=== PATIENT | female | born 1980 | race American Indian/Alaskan Native ===

== ENCOUNTER 2017-10-14 09:11 | Emergency (ER) | payer MEDICAID ==
[2017-10-14 09:18] VITALS: BP 175/107
[2017-10-14 10:32] LABS: Bacteria,Urine 1+ /HPF (Negative); Bilirubin,Urine NEG (Negative); Blood,Urine NEG (Negative); Color,Urine Yellow (Yellow); Mucus,Urine FEW /HPF; Protein,Urine <15 mg/dL mg/dL (Negative); Urobilinogen,Urine < 2.0 mg/dL (<2.0)
[2017-10-14 10:33] LABS: HCG Qualitative,Urine Negative (Negative)
[2017-10-14 10:52] LABS: Basophils % (Auto) 0.2 % (0.0-1.8); Eosinophils # (Auto) 0.6 K/mm3 (0.0-0.4); Eosinophils % (Auto) 3.9 % (0.0-4.3); Hematocrit 40.6 % (30.3-42.9); Hemoglobin 12.7 gm/dl (10.1-14.3); Lymphocytes # (Auto) 3.7 K/mm3 (1.2-5.4); Lymphocytes % (Auto) 25.5 % (13.4-35.0); Mean Corpuscular HGB Conc 31 % (30-34); Mean Corpuscular Volume 73 fl (79-97); Monocytes # (Auto) 1.2 K/mm3 (0.0-0.8); Monocytes % (Auto) 8.2 % (0.0-7.3); Platelet Count 335 K/mm3 (140-440); Red Blood Count 5.55 M/mm3 (3.65-5.03); Red Cell Distribution Width 16.7 % (13.2-15.2)
[2017-10-14 10:53] LABS: Mean Corpuscular Hemoglobin 23 pg (28-32)
[2017-10-14 11:08] LABS: Alanine Aminotransferase 59 units/L (7-56); Albumin 3.6 g/dL (3.9-5); BUN/Creatinine Ratio 10; Blood Urea Nitrogen 6 mg/dL (7-17); Calcium 8.7 mg/dL (8.4-10.2); Hemolysis Index 44; Lipase 31 units/L (13-60)
[2017-10-14] MEDS ORDERED: NACL 0.9% 1000 ML 1,000 ML IV ONE (11:58)
[2017-10-14] MEDS ORDERED: ZOFRAN IV ONE (11:58)
[2017-10-14] MEDS ORDERED: BENTYL IM ONE (11:58)
[2017-10-14] MEDS ORDERED: TORADOL IV ONE (11:58)
--- NOTE | 2017-10-14 15:19 | Cat Scan Report ---
CT ABDOMEN PELVIS WITH CONTRAST: HISTORY: Left lower quadrant abdominal pain, nausea, vomiting, diarrhea. COMPARISON: none. TECHNIQUE: Helical CT in 1.25mm intervals following IV contrast. Sagittal and coronal reconstructions. FINDINGS: Lung bases: Normal. Liver: There is diffuse fatty infiltration of the liver parenchyma. Mild hepatomegaly. No focal liver lesion is detected. Biliary system: Cholecystectomy. No biliary dilatation is appreciated. Pancreas: Normal. Spleen: Normal. Kidneys/ureters/bladder: Normal. Adrenal glands: Normal. Aorta: Normal. Intestines: Within normal limits given no oral contrast was administered. No focal inflammation or obstruction is identified. No diverticulosis. Appendix: Not confidently identified, correlate with surgical history. Pelvic viscera: The uterus and adnexa are within normal limits. An intrauterine device appears in good position. Ascites: None. Adenopathy: None. Musculoskeletal: Normal. IMPRESSION: No acute inflammatory process is appreciated. Mild hepatomegaly with diffuse fatty infiltration. Cholecystectomy. The appendix is not confidently identified, correlate with surgical history.
--- NOTE | 2017-10-14 16:14 | Emergency Department Report ---
ED N/V/D HPI - General Chief complaint: Abdominal Pain Stated complaint: ABD PAIN Time Seen by Provider: 10/14/17 11:50 Source: patient Mode of arrival: Ambulatory Limitations: No Limitations - History of Present Illness Initial comments: Patient is a 36-year-old asthmatic female who is presenting with 3 days of nausea vomiting diarrhea. Patient states she has some left lower quadrant and left flank pain as well. Patient states the pain is approximately a 6 out of 10 as crampy and colicky in nature. Patient denies any fevers chills chest pain dysuria vaginal discharge or vaginal bleeding at this time. Description of Vomiting: food contents, watery Description of Diarrhea: water - Related Data Home Medications Medication Instructions Recorded Confirmed Last Taken amLODIPine [Norvasc] 5 mg PO DAILY 03/29/13 08/10/13 08/08/13 Previous Rx's Medication Instructions Recorded Last Taken Type HYDROcodone/APAP 10-325 [[place] 1 each PO Q6HR PRN #12 tablet 08/24/13 Unknown Rx 10/325] Methocarbamol [Robaxin] 750 mg PO BID #14 tab 08/24/13 Unknown Rx Amoxicillin [Trimox CAP] 500 mg PO Q8H #30 capsule 10/05/14 Unknown Rx predniSONE [Deltasone] 20 mg PO TID #9 tab 10/05/14 Unknown Rx Ibuprofen [Motrin 800 MG tab] 800 mg PO Q8HR PRN #30 tablet 08/29/16 Unknown Rx oxyCODONE /ACETAMINOPHEN [Percocet 1 tab PO Q4-6H PRN #16 tablet 08/29/16 Unknown Rx 5/325 mg] Dicyclomine [Bentyl] 20 mg PO QID #15 tablet 10/14/17 Unknown Rx Diphenoxylate/Atropine [Lomotil] 1 tab PO TID PRN #10 tablet 10/14/17 Unknown Rx Ondansetron [Zofran Odt] 4 mg PO Q8HR PRN #10 tab.rapdis 10/14/17 Unknown Rx Allergies Allergy/AdvReac Type Severity Reaction Status Date / Time No Known Allergies Allergy Verified 04/02/16 12:32 ED Review of Systems ROS: Stated complaint: ABD PAIN Other details as noted in HPI Comment: All other systems reviewed and negative ED Past Medical Hx - Past Medical History Previous Medical History?: Yes Hx Hypertension: Yes Hx GERD: Yes Hx Headaches / Migraines: Yes Additional medical history: hyperlipidemia, neuropathy L leg - Surgical History Past Surgical History?: Yes Hx Cholecystectomy: Yes (2010) Additional Surgical History: left knee surgery 2011,C-sectiopn x 2 - Social History Smoking Status: Never Smoker Substance Use Type: Alcohol, Prescribed - Medications Home Medications: Home Medications Medication Instructions Recorded Confirmed Last Taken Type amLODIPine [Norvasc] 5 mg PO DAILY 03/29/13 08/10/13 08/08/13 History HYDROcodone/APAP 10-325 [[place] 1 each PO Q6HR PRN #12 tablet 08/24/13 Unknown Rx 10/325] Methocarbamol [Robaxin] 750 mg PO BID #14 tab 08/24/13 Unknown Rx Amoxicillin [Trimox CAP] 500 mg PO Q8H #30 capsule 10/05/14 Unknown Rx predniSONE [Deltasone] 20 mg PO TID #9 tab 10/05/14 Unknown Rx Ibuprofen [Motrin 800 MG tab] 800 mg PO Q8HR PRN #30 tablet 08/29/16 Unknown Rx oxyCODONE /ACETAMINOPHEN [Percocet 1 tab PO Q4-6H PRN #16 tablet 08/29/16 Unknown Rx 5/325 mg] Dicyclomine [Bentyl] 20 mg PO QID #15 tablet 10/14/17 Unknown Rx Diphenoxylate/Atropine [Lomotil] 1 tab PO TID PRN #10 tablet 10/14/17 Unknown Rx Ondansetron [Zofran Odt] 4 mg PO Q8HR PRN #10 tab.rapdis 10/14/17 Unknown Rx ED Physical Exam - General Limitations: No Limitations General appearance: alert, in no apparent distress - Head Head exam: Present: atraumatic, normocephalic - Eye Eye exam: Present: normal appearance - ENT ENT exam: Present: mucous membranes moist - Neck Neck exam: Present: normal inspection - Respiratory Respiratory exam: Present: normal lung sounds bilaterally. Absent: respiratory distress, wheezes, rales - Cardiovascular Cardiovascular Exam: Present: regular rate, normal rhythm. Absent: systolic murmur, diastolic murmur, rubs, gallop - GI/Abdominal GI/Abdominal exam: Present: soft, normal bowel sounds. Absent: distended, tenderness, guarding - Extremities Exam Extremities exam: Present: normal inspection - Back Exam Back exam: Present: normal inspection - Neurological Exam Neurological exam: Present: alert, oriented X3 - Psychiatric Psychiatric exam: Present: normal affect, normal mood - Skin Skin exam: Present: warm, dry, intact, normal color. Absent: rash ED Course Vital Signs 10/14/17 10/14/17 09:14 14:01 Temperature 98.2 F Pulse Rate 98 H Respiratory 20 16 Rate Blood Pressure 175/107 O2 Sat by Pulse 99 100 Oximetry ED Medical Decision Making - Lab Data Result diagrams: 10/14/17 10:24 10/14/17 10:27 Lab Results 10/14/17 10/14/17 10/14/17 Range/Units 10:24 10:27 Unknown WBC 14.4 H (4.5-11.0) K/mm3 RBC 5.55 H (3.65-5.03) M/mm3 Hgb 12.7 (10.1-14.3) gm/dl Hct 40.6 (30.3-42.9) % MCV 73 L (79-97) fl MCH 23 L (28-32) pg MCHC 31 (30-34) % RDW 16.7 H (13.2-15.2) % Plt Count 335 (140-440) K/mm3 Lymph % (Auto) 25.5 (13.4-35.0) % [place] % (Auto) 8.2 H (0.0-7.3) % Eos % (Auto) 3.9 (0.0-4.3) % Baso % (Auto) 0.2 (0.0-1.8) % Lymph # 3.7 (1.2-5.4) K/mm3 [place] # 1.2 H (0.0-0.8) K/mm3 Eos # 0.6 H (0.0-0.4) K/mm3 Baso # 0.0 (0.0-0.1) K/mm3 Seg Neutrophils % 62.2 (40.0-70.0) % Seg Neutrophils # 9.0 H (1.8-7.7) K/mm3 Sodium 139 (137-145) mmol/L Potassium 4.0 (3.6-5.0) mmol/L Chloride 103.0 (98-107) mmol/L Carbon Dioxide 24 (22-30) mmol/L Anion Gap 16 mmol/L BUN 6 L (7-17) mg/dL Creatinine 0.6 L (0.7-1.2) mg/dL Estimated GFR > 60 ml/min BUN/Creatinine Ratio 10 % Glucose 126 H (65-100) mg/dL Calcium 8.7 (8.4-10.2) mg/dL Total Bilirubin 0.30 (0.1-1.2) mg/dL AST 40 (5-40) units/L ALT 59 H (7-56) units/L Alkaline Phosphatase 94 (35-129) units/L Total Protein 7.8 (6.3-8.2) g/dL Albumin 3.6 L (3.9-5) g/dL Albumin/Globulin Ratio 0.9 % Lipase 31 (13-60) units/L Urine Color Yellow (Yellow) Urine Turbidity Clear (Clear) Urine pH 6.0 (5.0-7.0) Ur Specific [place] 1.017 (1.003-1.030) Urine Protein <15 mg/dl (Negative) mg/dL Urine Glucose (UA) Neg (Negative) mg/dL Urine Ketones Neg (Negative) mg/dL Urine Blood Neg (Negative) Urine Nitrite Neg (Negative) Urine Bilirubin Neg (Negative) Urine Urobilinogen < 2.0 (<2.0) mg/dL Ur Leukocyte Esterase Mod (Negative) Urine WBC (Auto) 22.0 H (0.0-6.0) /HPF Urine RBC (Auto) 2.0 (0.0-6.0) /HPF U Epithel Cells (Auto) 2.0 (0-13.0) /HPF Urine Bacteria (Auto) 1+ (Negative) /HPF Urine Mucus Few /HPF Urine HCG, Qual Negative (Negative) - Radiology Data Radiology results: report reviewed The patient's CT abdomen and pelvis with contrast shows no acute process. - Medical Decision Making Patient is a 36-year-old [place] female who is presenting with nausea vomiting diarrhea. CT and labs are consistent with a viral gastroenteritis. Patient will be discharged home with meds for symptomatic relief. Patient does have a history of hypertension and does have her medications for her blood pressure. Patient has no signs of end organ damage and she will be able to continue with her blood pressure medicines. Nausea medicines have been given so the patient will be able to keep her meds down. Critical care attestation.: If time is entered above; I have spent that time in minutes in the direct care of this critically ill patient, excluding procedure time. ED Disposition Clinical Impression: Viral gastroenteritis Disposition: DC-01 TO HOME OR SELFCARE Is pt being admited?: No Does the pt Need Aspirin: No Condition: Stable Instructions: Abdominal Pain (ED), Gastroenteritis (ED) Prescriptions: Dicyclomine [Bentyl] 20 mg PO QID #15 tablet Diphenoxylate/Atropine [Lomotil] 1 tab PO TID PRN #10 tablet PRN Reason: Diarrhea Ondansetron [Zofran Odt] 4 mg PO Q8HR PRN #10 tab.rapdis PRN Reason: Nausea Referrals: SEAMUS ESCOBEDO DO [Primary Care Provider] - 3-5 Days
== END 2017-10-14 17:08 | disposition home or self-care (01) ==
LOC: ED 09:11
DX: A08.4 Viral intestinal infection, unspecified (principal); K21.9 Gastro-esophageal reflux disease without esophagitis; I10 Essential (primary) hypertension; G43.909 Migraine, unspecified, not intractable, without status migrainosus; E78.5 Hyperlipidemia, unspecified; G62.9 Polyneuropathy, unspecified; Z90.49 Acquired absence of other specified parts of digestive tract
CPT/HCPCS: 36415; 74177; 80053; 81001; 81025; 83690; 85025; 96361; 96372; 96374; 96375; 99284; J0500; J1885; J2405; J7030; Q9967

== ENCOUNTER 2017-12-20 09:18 | Emergency (ER) | payer MEDICAID ==
[2017-12-20] MEDS ORDERED: COZAAR PO ONE (11:56)
[2017-12-20] MEDS ORDERED: BENADRYL IV ONE (11:56)
[2017-12-20] MEDS ORDERED: TORADOL IV ONE (11:56)
[2017-12-20] MEDS ORDERED: REGLAN IV ONE (11:56)
[2017-12-20] MEDS ORDERED: NACL 0.9% 500 ML 500 ML IV ONE (11:56)
--- NOTE | 2017-12-20 12:32 | Emergency Department Report ---
ED Headache HPI - General Chief Complaint: Headache Stated Complaint: HEADACHE Time Seen by Provider: 12/20/17 11:41 Source: patient Exam Limitations: no limitations - History of Present Illness Initial Comments: 37-year-old female the past medical history of obesity, migraines, hypertension , hyperlipidemia, and left leg neuropathy presents to the hospital with complaints of migraine headache for the past 3 days. Pain is right sided and typical of previous migraines with exeception of burning sensation down both sides of neck. She denies any burning sensation or weakness to her extremities. Pain is rated 9/10 in intensity and constant. Somewhat exacerbated by light. She has tried amitriptyline, sumatriptan, and magnesium without improvement. Nausea and vomiting yesterday but no vomiting today. Patient presents with elevated blood pressures states she did not take her a.m. dose of losartan 50 mg. Neurologist: Dr. Link Allergies/Adverse Reactions: Allergies No Known Allergies Allergy (Verified 04/02/16 12:32) Home Medications: Ambulatory Orders amLODIPine [Norvasc] 5 mg PO DAILY 03/29/13 HYDROcodone/APAP 10-325 [[place] 10/325] 1 each PO Q6HR PRN #12 tablet 08/24/13 Methocarbamol [Robaxin] 750 mg PO BID #14 tab 08/24/13 Amoxicillin [Trimox CAP] 500 mg PO Q8H #30 capsule 10/05/14 predniSONE [Deltasone] 20 mg PO TID #9 tab 10/05/14 Ibuprofen [Motrin 800 MG tab] 800 mg PO Q8HR PRN #30 tablet 08/29/16 oxyCODONE /ACETAMINOPHEN [Percocet 5/325 mg] 1 tab PO Q4-6H PRN #16 tablet 08/29 Dicyclomine [Bentyl] 20 mg PO QID #15 tablet 10/14/17 Diphenoxylate/Atropine [Lomotil] 1 tab PO TID PRN #10 tablet 10/14/17 Ondansetron [Zofran Odt] 4 mg PO Q8HR PRN #10 tab.rapdis 10/14/17 Cyclobenzaprine [Flexeril] 10 mg PO TID PRN #30 tablet 12/20/17 HYDROcodone/APAP 7.5-325 [[place] 7.5/325] 1 each PO Q8HR PRN #20 tablet 12/20/17 Ibuprofen [Motrin] 800 mg PO Q8HR PRN #30 tablet 12/20/17 ED Review of Systems ROS: Stated complaint: HEADACHE Other details as noted in HPI Comment: All other systems reviewed and negative ED Past Medical Hx - Past Medical History Hx Hypertension: Yes Hx GERD: Yes Hx Headaches / Migraines: Yes Additional medical history: hyperlipidemia, neuropathy L leg - Surgical History Hx Cholecystectomy: Yes (2010) Additional Surgical History: left knee surgery 2010,C-sectiopn x 2 - Social History Smoking Status: Never Smoker - Medications Home Medications: Home Medications Medication Instructions Recorded Confirmed Last Taken Type amLODIPine [Norvasc] 5 mg PO DAILY 03/29/13 08/10/13 08/08/13 History HYDROcodone/APAP 10-325 [[place] 1 each PO Q6HR PRN #12 tablet 08/24/13 Unknown Rx 10/325] Methocarbamol [Robaxin] 750 mg PO BID #14 tab 08/24/13 Unknown Rx Amoxicillin [Trimox CAP] 500 mg PO Q8H #30 capsule 10/05/14 Unknown Rx predniSONE [Deltasone] 20 mg PO TID #9 tab 10/05/14 Unknown Rx Ibuprofen [Motrin 800 MG tab] 800 mg PO Q8HR PRN #30 tablet 08/29/16 Unknown Rx oxyCODONE /ACETAMINOPHEN [Percocet 1 tab PO Q4-6H PRN #16 tablet 08/29/16 Unknown Rx 5/325 mg] Dicyclomine [Bentyl] 20 mg PO QID #15 tablet 10/14/17 Unknown Rx Diphenoxylate/Atropine [Lomotil] 1 tab PO TID PRN #10 tablet 10/14/17 Unknown Rx Ondansetron [Zofran Odt] 4 mg PO Q8HR PRN #10 tab.rapdis 10/14/17 Unknown Rx Cyclobenzaprine [Flexeril] 10 mg PO TID PRN #30 tablet 12/20/17 Unknown Rx HYDROcodone/APAP 7.5-325 [[place] 1 each PO Q8HR PRN #20 tablet 12/20/17 Unknown Rx 7.5/325] Ibuprofen [Motrin] 800 mg PO Q8HR PRN #30 tablet 12/20/17 Unknown Rx ED Physical Exam - General Limitations: No Limitations - Other Other exam information: General: No limitations, patient is alert in no acute distress Head exam: Atraumatic, normocephalic Eyes exam: Normal appearance, pupils equal reactive to light, extraocular movements intact ENT: Moist mucous membrane, normal oropharynx Neck exam: Normal inspection, full range of motion, no meningismus, tenderness palpation along bilateral trapezius and upper thoracic muscles Respiratory exam: Clear to auscultation bilateral, no wheezes, rales, crackles Cardiovascular: Normal rate and rhythm, normal heart sounds Abdomen: Soft, nondistended, and nontender, with normal bowel sounds, no rebound, or guarding Extremity: Full range of motion normal inspection no deformity Back: Normal Inspection, full range of motion, no tenderness Neurologic: Alert, oriented x3, cranial nerves intact, no motor or sensory deficit Psychiatric: normal affect, normal mood Skin: Warm, dry, intact ED Course Vital Signs 12/20/17 12/20/17 12/20/17 09:22 12:50 13:53 Temperature 97.9 F Pulse Rate 90 Respiratory 16 18 18 Rate Blood Pressure 162/108 [Left] O2 Sat by Pulse 98 Oximetry 12/20/17 14:47 Temperature Pulse Rate 85 Respiratory 18 Rate Blood Pressure 143/79 [Left] O2 Sat by Pulse 97 Oximetry ED Medical Decision Making - Radiology Data Radiology results: report reviewed CT scan of cervical spine: History: Right sided headache, migraine. Burning pain in the neck. Findings: The odontoid process and lateral mass appears intact. Anterior and posterior arch of atlas appears normal. There is normal height of vertebral bodies and intervertebral discs. Evidence of cervical spondylosis at C6-C7. Normal prevertebral soft tissue. Impression: Spondylosis C6-C7. CT scan of head without IV contrast: History: Right-sided headaches. Migraine. Findings: Ventricles are normal in size and midline in location. No evidence of acute ischemia, hemorrhage or mass. No extra-axial fluid collection. Normal brainstem and cerebellum. Normal visualized sinuses and mastoid air cells. Impression: No acute intracranial abnormality. - Medical Decision Making Headache Migraine cocktail: Reglan, Benadryl, NS, and Toradol with some relief in pain additional relief after Dilauid Flexeril for neck and muscle spasm HTN Patient did not take her medication Received losartan 50 mg bp improved with treatemtn will d/c on narcotics, nsaids, muscle relaxer for additional pain relief. - Differential Diagnosis ICH, migraine, mass, radiculopathy, muscle spasm hypertensive emergency Critical Care Time: No Critical care attestation.: If time is entered above; I have spent that time in minutes in the direct care of this critically ill patient, excluding procedure time. ED Disposition Clinical Impression: Muscle spasm of back, HTN (hypertension), Migraine, Neck muscle spasm Disposition: TO HOME OR SELFCARE Is pt being admited?: No Does the pt Need Aspirin: No Condition: Stable Instructions: Hypertension (ED), Migraine Headache (ED), Muscle Spasm (ED) Additional Instructions: Take the medication as prescribed in addition to your other prescribed migraine medication. Follow-up with your neurologist. Return is symptoms worsen as indicated by the discharge instructions Prescriptions: Cyclobenzaprine [Flexeril] 10 mg PO TID PRN #30 tablet PRN Reason: Muscle Spasm HYDROcodone/APAP 7.5-325 [[place] 7.5/325] 1 each PO Q8HR PRN #20 tablet PRN Reason: Pain Ibuprofen [Motrin] 800 mg PO Q8HR PRN #30 tablet PRN Reason: Pain Referrals: PRIMARY CARE,MD [Primary Care Provider] - 3-5 Days BOBBY LINK MD [Staff Physician] - 3-5 Days (Neurologist ) Time of Disposition: 15:15
--- NOTE | 2017-12-20 13:02 | Cat Scan Report ---
CT scan of head without IV contrast: History: Right-sided headaches. Migraine. Findings: Ventricles are normal in size and midline in location. No evidence of acute ischemia, hemorrhage or mass. No extra-axial fluid collection. Normal brainstem and cerebellum. Normal visualized sinuses and mastoid air cells. Impression: No acute intracranial abnormality.
--- NOTE | 2017-12-20 13:13 | Cat Scan Report ---
CT scan of cervical spine: History: Right sided headache, migraine. Burning pain in the neck. Findings: The odontoid process and lateral mass appears intact. Anterior and posterior arch of atlas appears normal. There is normal height of vertebral bodies and intervertebral discs. Evidence of cervical spondylosis at C6-C7. Normal prevertebral soft tissue. Impression: Spondylosis C6-C7.
[2017-12-20] MEDS ORDERED: DILAUDID IV ONE (13:32)
[2017-12-20] MEDS ORDERED: ZOFRAN IV ONE (13:32)
[2017-12-20] MEDS ORDERED: FLEXERIL PO ONE (14:41)
[2017-12-20 15:42] VITALS: BP 135/89
== END 2017-12-20 15:41 | disposition home or self-care (01) ==
LOC: ED 09:18
DX: G43.909 Migraine, unspecified, not intractable, without status migrainosus (principal); M62.830 Muscle spasm of back; I10 Essential (primary) hypertension; M62.838 Other muscle spasm; K21.9 Gastro-esophageal reflux disease without esophagitis
CPT/HCPCS: 70450; 72125; 96374; 96375; 99283; J1170; J1200; J1885; J2405; J2765; J7040

== ENCOUNTER 2019-02-05 16:53 | Emergency (ER) | payer MEDICAID ==
[2019-02-05 17:09] VITALS: BP 158/104
--- NOTE | 2019-02-05 17:09 | Event Note ---
ED Screening Note ED Screening Note: getting out of the bed heard a popping noise in her lower back that began this morning has not taken anything no urinary sx has a mirena IUD PMHx: HTN, GERD, HLD, migraines, neuropathy in the left leg, carpal tunnel PSHx: cholecystectomy no allergies to meds non smoker occ drinker no drug use This initial assessment/diagnostic orders/clinical plan/treatment(s) is/are subject to change based on patients health status, clinical progression and re- assessment by fellow clinical providers in the ED. Further treatment and workup at subsequent clinical providers discretion. Patient/guardian urged not to elope from the ED as their condition may be serious if not clinically assessed and managed. Initial orders include: UA, XR L-spine, urine preg
[2019-02-05 18:21] LABS: Bacteria,Urine 2+ /HPF (Negative); Bilirubin,Urine NEG (Negative); Blood,Urine SM (Negative); Color,Urine Yellow (Yellow); Protein,Urine <15 mg/dL mg/dL (Negative); Urobilinogen,Urine < 2.0 mg/dL (<2.0)
[2019-02-05 18:22] LABS: HCG Qualitative,Urine Negative (Negative)
--- NOTE | 2019-02-05 18:51 | XRay Report ---
LUMBAR SPINE 2 VIEWS INDICATION / CLINICAL INFORMATION: low back pain. COMPARISON: None available. FINDINGS: No significant abnormality. Signer Name: Lawrence Storey MD Signed: 02/05/2019 6:46 PM Workstation Name: [id number]
[2019-02-05] MEDS ORDERED: ULTRAM PO ONE (21:02)
--- NOTE | 2019-02-05 21:06 | Emergency Department Report ---
ED Back Pain/Injury HPI - General Chief Complaint: Back Pain/Injury Stated Complaint: UPPER/LOWER BACK PAIN Time Seen by Provider: 02/05/19 17:06 Source: patient Limitations: No Limitations - History of Present Illness Initial Comments: pt is a 38 y/o aaf with hx chronic back pain getting out of the bed heard a popping noise in her lower back that began this morning has not taken anything no urinary sx has a mirena IUD PMHx: HTN, GERD, HLD, migraines, neuropathy in the left leg, carpal tunnel PSHx: cholecystectomy no allergies to meds non smoker occ drinker no drug use there is no numbness no tingling no paralysis no loss or decrease in bowel or bladder function. MD Complaint: back pain Onset/Timin -: days(s) Similar Symptoms Previously: Yes Place: home Radiation: left leg Severity: moderate Severity scale (0 -10): 5 Quality: burning Consistency: intermittent Improves With: none Worsens With: movement Context: bending, other Associated Symptoms: denies: numbness, difficulty urinating, incontinence, fever /chills - Related Data Home Medications Medication Instructions Recorded Confirmed Last Taken amLODIPine [Norvasc] 5 mg PO DAILY 03/29/13 08/10/13 08/08/13 Previous Rx's Medication Instructions Recorded Last Taken Type HYDROcodone/APAP 10-325 [[place] 1 each PO Q6HR PRN #12 tablet 08/24/13 Unknown Rx 10/325] methOCARBAMOL [Robaxin] 750 mg PO BID #14 tab 08/24/13 Unknown Rx Amoxicillin [Trimox CAP] 500 mg PO Q8H #30 capsule 10/05/14 Unknown Rx predniSONE [Deltasone] 20 mg PO TID #9 tab 10/05/14 Unknown Rx Ibuprofen [Motrin 800 MG tab] 800 mg PO Q8HR PRN #30 tablet 08/29/16 Unknown Rx oxyCODONE /ACETAMINOPHEN [Percocet 1 tab PO Q4-6H PRN #16 tablet 08/29/16 Unknown Rx 5/325 mg] Dicyclomine [Bentyl] 20 mg PO QID #15 tablet 10/14/17 Unknown Rx Diphenoxylate/Atropine [Lomotil] 1 tab PO TID PRN #10 tablet 10/14/17 Unknown Rx Ondansetron [Zofran Odt] 4 mg PO Q8HR PRN #10 tab.rapdis 10/14/17 Unknown Rx Cyclobenzaprine [Flexeril] 10 mg PO TID PRN #30 tablet 12/20/17 Unknown Rx HYDROcodone/APAP 7.5-325 [[place] 1 each PO Q8HR PRN #20 tablet 12/20/17 Unknown Rx 7.5/325] Ibuprofen [Motrin] 800 mg PO Q8HR PRN #30 tablet 12/20/17 Unknown Rx Dicyclomine [Bentyl] 40 mg PO Q8H 3 Days #9 tablet 06/03/18 Unknown Rx Ranitidine HCl [Zantac 150 MG TAB] 150 mg PO Q12H 30 Days #60 tablet 06/03/18 Unknown Rx cephALEXin [Keflex] 500 mg PO Q12H 7 Days #14 cap 06/03/18 Unknown Rx Cyclobenzaprine [Flexeril] 10 mg PO TID PRN #30 tablet 02/05/19 Unknown Rx Menthol/Camphor [[place] 1 applicatio TP QID PRN #1 each 02/05/19 Unknown Rx Ointment] Naproxen [Naprosyn] 500 mg PO BID #30 tablet 02/05/19 Unknown Rx Nitrofurantoin [place]/M-Cryst 100 mg PO Q12HR 7 Days #14 capsule 02/05/19 Unknown Rx [Macrobid CAP] Allergies Allergy/AdvReac Type Severity Reaction Status Date / Time No Known Allergies Allergy Verified 04/02/16 12:32 ED Review of Systems ROS: Stated complaint: UPPER/LOWER BACK PAIN Other details as noted in HPI Constitutional: denies: chills, fever Eyes: denies: eye pain, eye discharge, vision change ENT: denies: ear pain, throat pain Respiratory: denies: cough, shortness of breath, wheezing Cardiovascular: denies: chest pain, palpitations Endocrine: no symptoms reported Gastrointestinal: denies: abdominal pain, nausea, diarrhea Genitourinary: denies: urgency, dysuria, discharge Musculoskeletal: back pain, arthralgia, myalgia Skin: denies: rash, lesions Neurological: as per HPI Psychiatric: denies: anxiety, depression Hematological/Lymphatic: denies: easy bleeding, easy bruising ED Past Medical Hx - Past Medical History Previous Medical History?: Yes Hx Hypertension: Yes Hx GERD: Yes Hx Headaches / Migraines: Yes Additional medical history: hyperlipidemia, neuropathy L leg - Surgical History Past Surgical History?: Yes Hx Cholecystectomy: Yes (2010) Additional Surgical History: left knee surgery 2011,C-sectiopn x 2 - Social History Smoking Status: Never Smoker Substance Use Type: None - Medications Home Medications: Home Medications Medication Instructions Recorded Confirmed Last Taken Type amLODIPine [Norvasc] 5 mg PO DAILY 03/29/13 08/10/13 08/08/13 History HYDROcodone/APAP 10-325 [[place] 1 each PO Q6HR PRN #12 tablet 08/24/13 Unknown Rx 10/325] methOCARBAMOL [Robaxin] 750 mg PO BID #14 tab 08/24/13 Unknown Rx Amoxicillin [Trimox CAP] 500 mg PO Q8H #30 capsule 10/05/14 Unknown Rx predniSONE [Deltasone] 20 mg PO TID #9 tab 10/05/14 Unknown Rx Ibuprofen [Motrin 800 MG tab] 800 mg PO Q8HR PRN #30 tablet 08/29/16 Unknown Rx oxyCODONE /ACETAMINOPHEN [Percocet 1 tab PO Q4-6H PRN #16 tablet 08/29/16 Unknown Rx 5/325 mg] Dicyclomine [Bentyl] 20 mg PO QID #15 tablet 10/14/17 Unknown Rx Diphenoxylate/Atropine [Lomotil] 1 tab PO TID PRN #10 tablet 10/14/17 Unknown Rx Ondansetron [Zofran Odt] 4 mg PO Q8HR PRN #10 tab.rapdis 10/14/17 Unknown Rx Cyclobenzaprine [Flexeril] 10 mg PO TID PRN #30 tablet 12/20/17 Unknown Rx HYDROcodone/APAP 7.5-325 [[place] 1 each PO Q8HR PRN #20 tablet 12/20/17 Unknown Rx 7.5/325] Ibuprofen [Motrin] 800 mg PO Q8HR PRN #30 tablet 12/20/17 Unknown Rx Dicyclomine [Bentyl] 40 mg PO Q8H 3 Days #9 tablet 06/03/18 Unknown Rx Ranitidine HCl [Zantac 150 MG TAB] 150 mg PO Q12H 30 Days #60 tablet 06/03/18 Unknown Rx cephALEXin [Keflex] 500 mg PO Q12H 7 Days #14 cap 06/03/18 Unknown Rx Cyclobenzaprine [Flexeril] 10 mg PO TID PRN #30 tablet 02/05/19 Unknown Rx Menthol/Camphor [[place] 1 applicatio TP QID PRN #1 each 02/05/19 Unknown Rx Ointment] Naproxen [Naprosyn] 500 mg PO BID #30 tablet 02/05/19 Unknown Rx Nitrofurantoin [place]/M-Cryst 100 mg PO Q12HR 7 Days #14 capsule 02/05/19 Unknown Rx [Macrobid CAP] ED Physical Exam - General Limitations: No Limitations General appearance: alert, in no apparent distress - Head Head exam: Present: atraumatic, normocephalic - Eye Eye exam: Present: normal appearance, PERRL, EOMI Pupils: Present: normal accommodation - ENT ENT exam: Present: mucous membranes moist - Neck Neck exam: Present: normal inspection, full ROM - Respiratory Respiratory exam: Present: normal lung sounds bilaterally. Absent: respiratory distress, wheezes, stridor, chest wall tenderness - Cardiovascular Cardiovascular Exam: Present: regular rate, normal rhythm, normal heart sounds. Absent: systolic murmur, diastolic murmur, rubs, gallop - GI/Abdominal GI/Abdominal exam: Present: soft, normal bowel sounds. Absent: distended, tenderness, bruit, hernia - Rectal Rectal exam: Present: deferred - Extremities Exam Extremities exam: Present: normal inspection, full ROM, normal capillary refill. Absent: tenderness, pedal edema, joint swelling, calf tenderness - Back Exam Back exam: Present: normal inspection, full ROM, tenderness (no posterior vertebral point tenderness ), muscle spasm, paraspinal tenderness. Absent: CVA tenderness (R), CVA tenderness (L), vertebral tenderness, rash noted - Expanded Back Exam Expanded Back exam: Absent: saddle anesthesia Back exam: Positive Straight Leg Raise: Left, Negative Straight Leg Raising: Right - Neurological Exam Neurological exam: Present: alert, oriented X3, CN II-XII intact, normal gait, reflexes normal. Absent: motor sensory deficit - Expanded Neurological Exam Expanded Patient oriented to: Present: person, place, time Speech: Present: fluid speech Cranial nerves: EOM's Intact: Normal, Gag Reflex: Normal, Tongue Deviation: Normal, Nystagmus: Normal, Facial Sensation: Normal Cerebellar function: Finger to Nose: Normal, Heel to [place]: Normal, Romberg: Normal Upper motor neuron: Alfredo Neglect: Normal, Pronator Drift: Normal, Babinski Sign: Normal, Sensory Extinction: Normal Motor strength exam: RUE: 5, LUE: 5, RLE: 5, LLE: 5 DTR: knee (R): 2+, knee (L): 2+, ankle (R): 2+, ankle (L): 2+ Best Eye Response ([place]): (4) open spontaneously Best Motor Response ([place]): (6) obeys commands Best Verbal Response ([place]): (5) oriented [place] Total: 15 - Psychiatric Psychiatric exam: Present: normal affect, normal mood - Skin Skin exam: Present: warm, dry, intact, normal color. Absent: rash ED Course Vital Signs 02/05/19 17:07 Temperature 97.6 F Pulse Rate 75 Respiratory 16 Rate Blood Pressure 158/104 O2 Sat by Pulse 99 Oximetry ED Medical Decision Making - Lab Data Labs 02/05/19 17:32 Urine Color Yellow Urine Turbidity Slightly-cloudy Urine pH 6.0 Ur Specific [place] 1.013 Urine Protein <15 mg/dl Urine Glucose (UA) Neg Urine Ketones Neg Urine Blood Sm Urine Nitrite Pos Urine Bilirubin Neg Urine Urobilinogen < 2.0 Ur Leukocyte Esterase Lg Urine WBC (Auto) 16.0 H Urine RBC (Auto) 7.0 U Epithel Cells (Auto) 10.0 Urine Bacteria (Auto) 2+ Urine HCG, Qual Negative - Radiology Data Radiology results: report reviewed, image reviewed Ordering Physician: PHI DE LA CRUZ Date of Service: 02/05/19 Procedure(s): XR spine lumbosacral 2-3V Accession Number(s): [id number] cc: PHI DE LA CRUZ Fluoro Time In Minutes: LUMBAR SPINE 2 VIEWS INDICATION / CLINICAL INFORMATION: low back pain. COMPARISON: None available. FINDINGS: No significant abnormality. Signer Name: Lawrence Storey MD Signed: 02/05/2019 6:46 PM Workstation Name: [id number] Transcribed By: TM Dictated By: Lawrence Storey MD Electronically Authenticated By: Lawrence Storey MD Signed Date/Time: 02/05/191845 DD/ 1845 TD/TT: - Medical Decision Making xray normal no fracture no soft tissue, ua: pos for leuk wbc bacteria will tx for UTI, pt will follow up with pcp in 2-3 days. Critical care attestation.: If time is entered above; I have spent that time in minutes in the direct care of this critically ill patient, excluding procedure time. ED Disposition Clinical Impression: UTI (urinary tract infection) Qualifiers: Urinary tract infection type: acute cystitis Hematuria presence: without hematuria Qualified Code(s): N30.00 - Acute cystitis without hematuria Disposition: TO HOME OR SELFCARE Is pt being admited?: No Does the pt Need Aspirin: No Condition: Stable Instructions: Urinary Tract Infection in Women (ED) Prescriptions: Cyclobenzaprine [Flexeril] 10 mg PO TID PRN #30 tablet PRN Reason: Muscle Spasm Nitrofurantoin [place]/M-Cryst [Macrobid CAP] 100 mg PO Q12HR 7 Days #14 capsule Naproxen [Naprosyn] 500 mg PO BID #30 tablet Menthol/Camphor [[place] Ointment] 1 applicatio TP QID PRN #1 each PRN Reason: pain Referrals: BOYD PARKS MD [Primary Care Provider] - 3-5 Days Forms: Work/School Release Form(ED) Time of Disposition: 21:16
== END 2019-02-05 21:55 | disposition home or self-care (01) ==
LOC: ED 16:53
DX: N39.0 Urinary tract infection, site not specified (principal); I10 Essential (primary) hypertension; K21.0 Gastro-esophageal reflux disease with esophagitis; E78.00 Pure hypercholesterolemia, unspecified; G62.9 Polyneuropathy, unspecified; Z90.49 Acquired absence of other specified parts of digestive tract; Z98.890 Other specified postprocedural states; Z79.899 Other long term (current) drug therapy
CPT/HCPCS: 72100; 81001; 81025; 87076; 87086; 87186; 99283

== ENCOUNTER 2019-09-01 11:18 | Emergency (ER) | payer MEDICAID, OTHER ==
[2019-09-01 11:25] VITALS: BP 168/107
--- NOTE | 2019-09-01 12:23 | Event Note ---
ED Screening Note Date of service: 09/01/19 Time: 12:20 ED Screening Note: 38 y/o female comes in for muscle spasms in both legs and right heel pain. Denies any trauma. PMH HTN, neuropathy, migraines, acid reflux. Pain 7/10 Took IB last night. This initial assessment/diagnostic orders/clinical plan/treatment(s) is/are subject to change based on patients health status, clinical progression and re- assessment by fellow clinical providers in the ED. Further treatment and workup at subsequent clinical providers discretion. Patient/guardian urged not to elope from the ED as their condition may be serious if not clinically assessed and managed. Initial orders include:
--- NOTE | 2019-09-01 13:08 | XRay Report ---
RIGHT CALCANEUS 2 VIEWS INDICATION / CLINICAL INFORMATION: heel pain. COMPARISON: None available. FINDINGS: Moderate spurring inferiorly. No fracture or other acute abnormality. Signer Name: Lawrence Storey MD Signed: 09/01/2019 1:04 PM Workstation Name: [id number]
[2019-09-01 13:17] LABS: Basophils # (Auto) 0.1 K/mm3 (0.0-0.1); Basophils % (Auto) 0.7 % (0.0-1.8); Eosinophils # (Auto) 0.4 K/mm3 (0.0-0.4); Eosinophils % (Auto) 3.7 % (0.0-4.3); Hematocrit 46.4 % (30.3-42.9); Lymphocytes # (Auto) 3.3 K/mm3 (1.2-5.4); Lymphocytes % (Auto) 29.2 % (13.4-35.0); Mean Corpuscular HGB Conc 32 % (30-34); Mean Corpuscular Volume 81 fl (79-97); Monocytes # (Auto) 0.9 K/mm3 (0.0-0.8); Platelet Count 289 K/mm3 (140-440); Red Blood Count 5.76 M/mm3 (3.65-5.03); Red Cell Distribution Width 14.6 % (13.2-15.2)
[2019-09-01 13:41] LABS: Alanine Aminotransferase 93 units/L (7-56); Albumin 4.1 g/dL (3.9-5); BUN/Creatinine Ratio 9; Blood Urea Nitrogen 7 mg/dL (7-17); Calcium 9.3 mg/dL (8.4-10.2); Hemolysis Index 14
--- NOTE | 2019-09-01 16:24 | Emergency Department Report ---
Chief Complaint: Extremity Injury, Lower Stated Complaint: SPASMS IN BOTH LEGS Time Seen by Provider: 09/01/19 12:19 - HPI History of Present Illness: This is a 38-year-old female presents the ED complaining of bilateral foot pain times a while now. Patient states over the past couple of days she has had more pain in her right heel. Patient states that pain is worsened with pressing down on the heel and prolonged walking. Patient denies injury/trauma or falls. Patient denies any swelling to the foot, calf pain or leg swelling. Patient does note that she has a history of hypertension, GERD which are controlled with medication - ROS Review of Systems: As noted in HPI - Exam Vital Signs: Vital Signs 09/01/19 11:24 Temperature 98.2 F Pulse Rate 84 Respiratory 18 Rate Blood Pressure 168/107 [Left] O2 Sat by Pulse 100 Oximetry Physical Exam: GENERAL: Alert and oriented x3, no apparent distress, Normal Gait, atraumatic. HEAD: Head is normocephalic and a-traumatic. EXTREMITIES/MUSCULOSKELETAL: No cyanosis, clubbing, rash, lesions or edema. Full ROM bilaterally. UE/LE Pulses 2+ bilaterally. LE and UE 5+ strength bilatera lly, straight leg raise negative bilaterally. Pain to palpation of the right heel, no calf tenderness, Homans sign negative NEUROLOGIC: The patient is cooperative with no focal neurologic deficits. SKIN: Warm and dry, No lesions, No ulceration or induration present. MSE screening note: Focused history and physical exam performed. Due to findings the following was ordered: ED Medical Decision Making - Lab Data Result diagrams: 09/01/19 13:01 09/01/19 13:01 Laboratory Last Values WBC 11.1 K/mm3 (4.5-11.0) H 09/01/19 13:01 RBC 5.76 M/mm3 (3.65-5.03) H 09/01/19 13:01 Hgb 15.0 gm/dl (10.1-14.3) H 09/01/19 13:01 Hct 46.4 % (30.3-42.9) H 09/01/19 13:01 MCV 81 fl (79-97) 09/01/19 13:01 MCH 26 pg (28-32) L 09/01/19 13:01 MCHC 32 % (30-34) 09/01/19 13:01 RDW 14.6 % (13.2-15.2) 09/01/19 13:01 Plt Count 289 K/mm3 (140-440) 09/01/19 13:01 Lymph % (Auto) 29.2 % (13.4-35.0) 09/01/19 13:01 [place] % (Auto) 8.0 % (0.0-7.3) H 09/01/19 13:01 Eos % (Auto) 3.7 % (0.0-4.3) 09/01/19 13:01 Baso % (Auto) 0.7 % (0.0-1.8) 09/01/19 13:01 Lymph # 3.3 K/mm3 (1.2-5.4) 09/01/19 13:01 [place] # 0.9 K/mm3 (0.0-0.8) H 09/01/19 13:01 Eos # 0.4 K/mm3 (0.0-0.4) 09/01/19 13:01 Baso # 0.1 K/mm3 (0.0-0.1) 09/01/19 13:01 Seg Neutrophils % 58.4 % (40.0-70.0) 09/01/19 13:01 Seg Neutrophils # 6.5 K/mm3 (1.8-7.7) 09/01/19 13:01 Sodium 143 mmol/L (137-145) 09/01/19 13:01 Potassium 4.5 mmol/L (3.6-5.0) 09/01/19 13:01 Chloride 102.9 mmol/L (98-107) 09/01/19 13:01 Carbon Dioxide 27 mmol/L (22-30) 09/01/19 13:01 Anion Gap 18 mmol/L 09/01/19 13:01 BUN 7 mg/dL (7-17) 09/01/19 13:01 Creatinine 0.8 mg/dL (0.7-1.2) 09/01/19 13:01 Estimated GFR > 60 ml/min 09/01/19 13:01 BUN/Creatinine Ratio 9 % 09/01/19 13:01 Glucose 109 mg/dL (65-100) H 09/01/19 13:01 Calcium 9.3 mg/dL (8.4-10.2) 09/01/19 13:01 Magnesium 2.10 mg/dL (1.7-2.3) 09/01/19 13:01 Total Bilirubin 0.70 mg/dL (0.1-1.2) 09/01/19 13:01 AST 52 units/L (5-40) H 09/01/19 13:01 ALT 93 units/L (7-56) H 09/01/19 13:01 Alkaline Phosphatase 127 units/L (35-129) 09/01/19 13:01 Total Protein 8.1 g/dL (6.3-8.2) 09/01/19 13:01 Albumin 4.1 g/dL (3.9-5) 09/01/19 13:01 Albumin/Globulin Ratio 1.0 % 09/01/19 13:01 - Medical Decision Making This 38-year-old female presents with right foot pain secondary to a heel spur. Labs and x-rays were ordered and completed prior to my evaluation. X-ray does show positive moderate heel spur. Discussed findings with the patient. 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 At this time patient did not exhibit any signs of calf pain or poor extremity pain. Discussed with patient also follow-up with the primary care physician. 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
== END 2019-09-01 16:40 | disposition left against medical advice (07) ==
LOC: ED 11:18
DX: M77.31 Calcaneal spur, right foot (principal); M25.572 Pain in left ankle and joints of left foot; I10 Essential (primary) hypertension; K21.9 Gastro-esophageal reflux disease without esophagitis
CPT/HCPCS: 36415; 80053; 83735; 85025; 99283

== ENCOUNTER 2022-02-21 19:19 | Emergency (ER) | payer OTHER ==
[2022-02-21] MEDS ORDERED: METOCLOPRAMIDE 10 MG/2 ML INJ IV ONE (23:12)
[2022-02-21] MEDS ORDERED: KETOROLAC 30 MG/1 ML INJ IV ONE (23:12)
[2022-02-21] MEDS ORDERED: diphenhydrAMINE 50 MG/ML VIAL IV ONE (23:12)
--- NOTE | 2022-02-22 01:26 | Emergency Department Report ---
ED Headache HPI - General Chief Complaint: Headache Stated Complaint: MIGRAINE FOR DAYS Source: patient, RN notes reviewed Exam Limitations: no limitations - History of Present Illness Initial Comments: Patient is a 41-year-old -[place] female with a history of chronic migraine headaches, hypertension, GERD and hyperlipidemia who presents to the ED with complaint of acute exacerbation of her chronic migraine headaches with nausea, photophobia and blurry vision for the last 3 days despite taking her regular medications of Topamax. Patient also states that she took Excedrin migraine headache medication with no relief. Patient states that this symptom of headache is typical of her chronic migraine headache whenever they flareup. Patient denies dizziness, syncope, neck pain, chest pain or shortness of breath, vision loss, speech changes, hearing loss, traumatic injury, fever and chills, vomiting, diarrhea, abdominal pain, numbness and tingling or weakness of upper and lower extremities bilaterally. Timing/Duration: waxing and waning, other (3 days) Quality: severe, constant, pressure, sharp Head Injury Location: global Recent Head Trauma: no recent headache/trauma, chronic headaches Modifying Factors: improves with: medication Associated Symptoms: denies symptoms, nausea/vomiting. denies: confusion, fatigue, facial pain, fever/chills, flushing, loss of consciousness, nasal congestion, seizures, sinus infection, stiff neck, vision changes, weakness Allergies/Adverse Reactions: Allergies No Known Allergies Allergy (Verified 09/01/19 12:22) Home Medications: Ambulatory Orders amLODIPine 5 mg PO DAILY 03/29/13 HYDROcodone/APAP 10-325 [[place] 10/325] 1 each PO Q6HR PRN #12 tablet 08/24/13 methOCARBAMOL [Robaxin] 750 mg PO BID #14 tab 08/24/13 Amoxicillin [Trimox CAP] 500 mg PO Q8H #30 capsule 10/05/14 predniSONE [Deltasone] 20 mg PO TID #9 tab 10/05/14 oxyCODONE /ACETAMINOPHEN [Percocet 5/325 mg] 1 tab PO Q4-6H PRN #16 tablet 08/29/16 Dicyclomine [Bentyl] 20 mg PO QID #15 tablet 10/14/17 Diphenoxylate/Atropine [Lomotil] 1 tab PO TID PRN #10 tablet 10/14/17 Ondansetron [Zofran Odt] 4 mg PO Q8HR PRN #10 tab.rapdis 10/14/17 HYDROcodone/APAP 7.5-325 [[place] 7.5/325] 1 each PO Q8HR PRN #20 tablet 12/20/17 Ibuprofen [Motrin] 800 mg PO Q8HR PRN #30 tablet 12/20/17 Dicyclomine [Bentyl] 40 mg PO Q8H 3 Days #9 tablet 06/03/18 cephALEXin [Keflex] 500 mg PO Q12H 7 Days #14 cap 06/03/18 raNITIdine HCl [Zantac 150 MG TAB] 150 mg PO Q12H 30 Days #60 tablet 06/03/18 Cyclobenzaprine [Flexeril] 10 mg PO TID PRN #30 tablet 02/05/19 Menthol/Camphor [[place] Ointment] 1 applicatio TP QID PRN #1 each 02/05/19 Naproxen [Naprosyn] 500 mg PO BID #30 tablet 02/05/19 Nitrofurantoin [place]/M-Cryst [Macrobid CAP] 100 mg PO Q12HR 7 Days #14 capsule 02/05/19 Clindamycin [Clindamycin CAP] 300 mg PO Q8H #21 cap 03/19/19 Ibuprofen [Motrin] 600 mg PO Q8H PRN #30 tablet 03/19/19 Cyclobenzaprine [Flexeril 10 MG TAB] 10 mg PO BID PRN #20 tablet 09/01/19 Ibuprofen [Motrin 800 MG tab] 800 mg PO Q8HR PRN #30 tablet 09/01/19 Butalb/Acetamin/Caff 50-325-40 [Fioricet 50-325-40] 1 - 2 tab PO Q6HR PRN #15 tab 02/22/22 Cyclobenzaprine [Flexeril] 10 mg PO TID PRN #15 tab 02/22/22 Ketorolac [Toradol] 10 mg PO Q8H PRN #20 tab 02/22/22 Promethazine [Phenergan] 25 mg PO Q8HR PRN #30 tab 02/22/22 ED Review of Systems ROS: Stated complaint: MIGRAINE FOR DAYS Other details as noted in HPI Constitutional: denies: chills, fever Eyes: denies: eye pain, eye discharge, vision change ENT: denies: ear pain, throat pain Respiratory: denies: cough, shortness of breath, wheezing Cardiovascular: denies: chest pain, palpitations Endocrine: no symptoms reported Gastrointestinal: nausea. denies: abdominal pain, vomiting, diarrhea Genitourinary: denies: urgency, dysuria, discharge Musculoskeletal: denies: back pain, joint swelling, arthralgia Skin: denies: rash, lesions Neurological: headache. denies: weakness, paresthesias Psychiatric: denies: anxiety, depression Hematological/Lymphatic: denies: easy bleeding, easy bruising ED Past Medical Hx - Past Medical History Hx Hypertension: Yes Hx GERD: Yes Hx Headaches / Migraines: Yes Additional medical history: hyperlipidemia, neuropathy L leg, carpal tunnel - Surgical History Hx Cholecystectomy: Yes (2010) Additional Surgical History: left knee surgery 2010,C-sectiopn x 2 - Social History Smoking Status: Never Smoker Substance Use Type: Alcohol - Medications Home Medications: Home Medications Medication Instructions Recorded Confirmed Last Taken Type amLODIPine 5 mg PO DAILY 03/29/13 08/10/13 08/08/13 History HYDROcodone/APAP 10-325 [[place] 1 each PO Q6HR PRN #12 tablet 08/24/13 Unknown Rx 10/325] methOCARBAMOL [Robaxin] 750 mg PO BID #14 tab 08/24/13 Unknown Rx Amoxicillin [Trimox CAP] 500 mg PO Q8H #30 capsule 10/05/14 Unknown Rx predniSONE [Deltasone] 20 mg PO TID #9 tab 10/05/14 Unknown Rx oxyCODONE /ACETAMINOPHEN [Percocet 1 tab PO Q4-6H PRN #16 tablet 08/29/16 Unknown Rx 5/325 mg] Dicyclomine [Bentyl] 20 mg PO QID #15 tablet 10/14/17 Unknown Rx Diphenoxylate/Atropine [Lomotil] 1 tab PO TID PRN #10 tablet 10/14/17 Unknown Rx Ondansetron [Zofran Odt] 4 mg PO Q8HR PRN #10 tab.rapdis 10/14/17 Unknown Rx HYDROcodone/APAP 7.5-325 [[place] 1 each PO Q8HR PRN #20 tablet 12/20/17 Unknown Rx 7.5/325] Ibuprofen [Motrin] 800 mg PO Q8HR PRN #30 tablet 12/20/17 Unknown Rx Dicyclomine [Bentyl] 40 mg PO Q8H 3 Days #9 tablet 06/03/18 Unknown Rx cephALEXin [Keflex] 500 mg PO Q12H 7 Days #14 cap 06/03/18 Unknown Rx raNITIdine HCl [Zantac 150 MG TAB] 150 mg PO Q12H 30 Days #60 tablet 06/03/18 Unknown Rx Cyclobenzaprine [Flexeril] 10 mg PO TID PRN #30 tablet 02/05/19 Unknown Rx Menthol/Camphor [[place] 1 applicatio TP QID PRN #1 each 02/05/19 Unknown Rx Ointment] Naproxen [Naprosyn] 500 mg PO BID #30 tablet 02/05/19 Unknown Rx Nitrofurantoin [place]/M-Cryst 100 mg PO Q12HR 7 Days #14 capsule 02/05/19 Unknown Rx [Macrobid CAP] Clindamycin [Clindamycin CAP] 300 mg PO Q8H #21 cap 03/19/19 Unknown Rx Ibuprofen [Motrin] 600 mg PO Q8H PRN #30 tablet 03/19/19 Unknown Rx Cyclobenzaprine [Flexeril 10 MG 10 mg PO BID PRN #20 tablet 09/01/19 Unknown Rx TAB] Ibuprofen [Motrin 800 MG tab] 800 mg PO Q8HR PRN #30 tablet 09/01/19 Unknown Rx Butalb/Acetamin/Caff 50-325-40 1 - 2 tab PO Q6HR PRN #15 tab 02/22/22 Unknown Rx [Fioricet 50-325-40] Cyclobenzaprine [Flexeril] 10 mg PO TID PRN #15 tab 02/22/22 Unknown Rx Ketorolac [Toradol] 10 mg PO Q8H PRN #20 tab 02/22/22 Unknown Rx Promethazine [Phenergan] 25 mg PO Q8HR PRN #30 tab 02/22/22 Unknown Rx ED Physical Exam - General Limitations: No Limitations General appearance: alert, in no apparent distress - Head Head exam: Present: atraumatic, normocephalic, normal inspection - Eye Eye exam: Present: normal appearance, PERRL, EOMI Pupils: Present: normal accommodation - ENT ENT exam: Present: normal exam, normal orophraynx, mucous membranes moist, TM's normal bilaterally, normal external ear exam - Neck Neck exam: Present: normal inspection, full ROM. Absent: tenderness - Respiratory Respiratory exam: Present: normal lung sounds bilaterally. Absent: respiratory distress, wheezes, rales, rhonchi, chest wall tenderness, accessory muscle use, decreased breath sounds, prolonged expiratory, other - Cardiovascular Cardiovascular Exam: Present: regular rate, normal rhythm, normal heart sounds. Absent: systolic murmur, diastolic murmur, rubs, gallop - GI/Abdominal GI/Abdominal exam: Present: soft, normal bowel sounds. Absent: tenderness, guarding, rebound, hyperactive bowel sounds, hypoactive bowel sounds, organomegaly - Extremities Exam Extremities exam: Present: normal inspection, full ROM, normal capillary refill. Absent: tenderness - Back Exam Back exam: Present: normal inspection, full ROM. Absent: tenderness, CVA tenderness (R), CVA tenderness (L), muscle spasm, paraspinal tenderness, vertebral tenderness - Neurological Exam Neurological exam: Present: alert, oriented X3, CN II-XII intact, normal gait, reflexes normal - Psychiatric Psychiatric exam: Present: normal affect, normal mood - Skin Skin exam: Present: warm, dry, intact, normal color. Absent: rash ED Course Vital Signs 02/21/22 19:36 Temperature 98.6 F Pulse Rate 88 Respiratory 18 Rate Blood Pressure 165/107 O2 Sat by Pulse 97 Oximetry ED Medical Decision Making - Medical Decision Making This is a 41-year-old -[place] female with a history of chronic migraine headaches, hypertension, GERD and hyperlipidemia who presents to the ED with complaint of acute exacerbation of her chronic migraine headaches with nausea, photophobia and blurry vision for the last 3 days despite taking her regular medications of Topamax. Patient also states that she took Excedrin migraine headache medication with no relief. Patient states that this symptom of headache is typical of her chronic migraine headache whenever they flareup. In the ED, patient is alert and oriented x3 and is not in distress. Patient was treated for pain in the ED and observed in the ED. On reevaluation, patient pain is well controlled medication. Patient was discharged home on medications and advised to continue taking her previously prescribed migraine headache medications and to follow-up with her primary care physician in 5 to 7 days for reevaluation or return to the ED immediately if symptoms get worse. - Differential Diagnosis Migraine headache; tension headache; cluster headache; cervicogenic headach Critical care attestation.: If time is entered above; I have spent that time in minutes in the direct care of this critically ill patient, excluding procedure time. ED Disposition Clinical Impression: Migraine headache without aura Qualifiers: Status migrainosus presence: with status migrainosus Intractability: not intractable Qualified Code(s): G43.001 - Migraine without aura, not intractable, with status migrainosus Chronic headache disorder Qualifiers: Headache type: unspecified Intractability: not intractable Qualified Code(s): R51.9 - Headache, unspecified; G89.29 - Other chronic pain Disposition: HOME / SELF CARE / HOMELESS Is pt being admited?: No Does the pt Need Aspirin: No Condition: Stable Instructions: Migraine Headache, [id number], Recurrent Migraine Headache, [id number] Additional Instructions: Take medication with food, drink plenty of fluids, follow-up with your primary care physician in 7 to 10 days for reevaluation. Return to the ED immediately if symptoms get worse. Prescriptions: Butalb/Acetamin/Caff 50-325-40 [Fioricet 50-325-40] 1 - 2 tab PO Q6HR PRN #15 tab PRN Reason: Headache Cyclobenzaprine [Flexeril] 10 mg PO TID PRN #15 tab PRN Reason: Muscle Spasm Promethazine [Phenergan] 25 mg PO Q8HR PRN #30 tab PRN Reason: Nausea Ketorolac [Toradol] 10 mg PO Q8H PRN #20 tab PRN Reason: Pain Referrals: [facility] [Provider Group] - 3-5 Days Time of Disposition: : Print Language: SLOVENIAN
[2022-02-22 02:26] VITALS: BP 137/87
== END 2022-02-22 02:47 | disposition home or self-care (01) ==
LOC: ED 19:19
DX: G43.009 Migraine without aura, not intractable, without status migrainosus (principal); G89.29 Other chronic pain; I10 Essential (primary) hypertension; F10.20 Alcohol dependence, uncomplicated
CPT/HCPCS: 96374; 96375; 99282; J1200; J1885; J2765

== ENCOUNTER 2022-03-14 09:11 | Outpatient (CLI) | payer OTHER ==
--- NOTE | 2022-03-14 12:56 | Fluoroscopy Report ---
BARIUM SWALLOW Indication: R21.9 R13.10. Technique: Single and double contrast barium technique utilized to evaluate the esophagus. FINDINGS: To begin the exam, swallowing was evaluated in the lateral position under direct fluorosco py. Swallowing was normal. No mucosal irregularity, mass, mass effect, or critical stenosis. There were no abnormal tertiary c ontractions as seen with dysmotility. No hiatal hernia or reflux was witnessed during this exam. IMPRESSION: No abnormality identified. Fluoroscopic time: 2.6 minutes Number of fluoroscopic images: 33 Signer Name: Russ Salas Jr, MD Signed: 03/14/2022 12:52 PM Workstation Name: [id number]
--- NOTE | 2022-03-14 13:20 | XRay Report ---
CERVICAL SPINE 5 VIEWS INDICATION: Neck pain. COMPARISON: None. IMPRESSION: There is normal alignment. Mild straightening of the normal lordosis is noted. Mild disc ogenic DJD is identified at C4-5 and C6-7. The facet joints are unremarkable. The bony neural forame n appear widely patent on the oblique images. No acute osseous or soft tissue abnormality. BILATERAL WRIST 4 VIEWS INDICATION: Bilateral wrist pain. COMPARISON: None. IMPRESSION: No acute osseous or soft tissue abnormality. No significant DJD. THORACIC SPINE 3 VIEWS INDICATION: BACK PAIN. COMPARISON: None. IMPRESSION: There is normal alignment on the lateral view. There is minimal levocurvature of the upp er thoracic spine and minimal compensatory dextrocurvature of the midthoracic spine. Minimal multilev el discogenic disc disease is noted in the mid thoracic spine. No acute osseous or soft tissue abnorm ality. LUMBOSACRAL SPINE 5 VIEWS INDICATION: BACK PAIN. COMPARISON: None. IMPRESSION: Normal alignment. Mild disc space narrowing is present at L4-5 and L5-S1. The remaining disc levels are unremarkable. There is moderate diffuse facet arthropathy with hypertrophic changes. No acute osseous or soft tissue abnormality. Signer Name: Russ Slaas Jr, MD Signed: 03/14/2022 1:16 PM Workstation Name: [id number]
== END 2022-03-14 09:12 | disposition home or self-care (01) ==
LOC: FLUORO 09:11
DX: M47.812 Spondylosis without myelopathy or radiculopathy, cervical region (principal); K21.9 Gastro-esophageal reflux disease without esophagitis; R13.10 Dysphagia, unspecified; M25.532 Pain in left wrist; M25.531 Pain in right wrist; M47.814 Spondylosis without myelopathy or radiculopathy, thoracic region; M47.817 Spondylosis without myelopathy or radiculopathy, lumbosacral region
CPT/HCPCS: 72050; 72072; 72110; 74220